=== PATIENT | female | born 1960 | race Caucasian/White ===

== ENCOUNTER 2018-12-01 19:55 | Emergency (ER) | payer OTHER ==
[2018-12-01 20:13] VITALS: BP 135/79
--- NOTE | 2018-12-01 20:20 | UC ---
Complaint Female HPI - HPI Summary HPI Summary: For about the past 2 weeks, has had off and on dysuria and urgency which responded to Azo, cranberry supplement and D-mannos. this afternoon, sudden onset of dysuria, urgency and suprapubic pain, without fever or back pain. No increase in nocturia or gross hematuria. - History Of Current Complaint Chief Complaint: UCGU Stated Complaint: URINARY COMPLAINT Time Seen by Provider: 12/01/18 20:19 Hx Obtained From: Patient Hx Last Menstrual Period: 2 months ago, normally irregular ?: No Onset/Duration: Gradual Onset, Lasting Weeks Timing: Lasting Days Severity Initially: Moderate Severity Currently: Moderate Pain Intensity: 4 Character: Dull, Burning Aggravating Factor(s): Urination Alleviating Factor(s): Meds Associated Signs And Symptoms: Positive: Nausea. Negative: Fever, Back Pain - Allergies/Home Medications Allergies/Adverse Reactions: Allergies Allergy/AdvReac Type Severity Reaction Status Date / Time Sulfa (Sulfonamide Allergy Rash Verified 12/01/18 20:09 Antibiotics) gluten AdvReac Diarrhea Verified 12/01/18 20:09 pollen extracts AdvReac Congestion Verified 12/01/18 20:09 Home Medications: Home Medications Atorvastatin* [Lipitor*] 10 mg PO QAM 12/01/18 [History Confirmed 12/01/18] Cholecalciferol TAB* [Vitamin D TAB*] 8,000 units PO DAILY 12/01/18 [History Confirmed 12/01/18] L.acidoph,Paracasei, B.lactis [Probiotic] 1 each PO DAILY 12/01/18 [History Confirmed 12/01/18] Metoprolol Succinate XL TAB* [Toprol XL TAB*] 100 mg PO QAM 12/01/18 [History Confirmed 12/01/18] Spironolactone 100 mg PO QAM 12/01/18 [History Confirmed 12/01/18] Thyroid,Pork [[place] Thyroid] 120 mg PO QAM 12/01/18 [History Confirmed 12/01/18 ] PMH/Surg Hx/FS Hx/Imm Hx - Additional Past Medical History Additional PMH: past B12 and vitamin D deficiencies. Cardiovascular History: Hypertension GI/ History: Other - celiac disease - Surgical History Surgical History: Yes Surgery Procedure, Year, and Place: appy 1979. tonsils 1975 - Family History Known Family History: Positive: Cardiac Disease, Other - mother with celiac disease - Social History Lives: With Family Alcohol Use: None Substance Use Type: None Smoking Status (MU): Never Smoked Tobacco Review of Systems All Other Systems Reviewed And Are Negative: Yes Constitutional: Positive: Fatigue Gastrointestinal: Positive: Nausea Genitourinary: Positive: Dysuria, Frequency, Urgency. Negative: Vaginal/Penile Discharge Is Patient Immunocompromised?: No Physical Exam Triage Information Reviewed: Yes Appearance: Well-Appearing, No Pain Distress Vital Signs: Initial Vital Signs Temp 98.3 F 12/01/18 20:06 Pulse 78 12/01/18 20:06 Resp 16 12/01/18 20:06 BP 135/79 12/01/18 20:06 Pulse Ox 98 12/01/18 20:06 ENT Exam: Normal ENT: Positive: Normal ENT inspection Neck: Positive: Supple, Nontender, No Lymphadenopathy Respiratory: Positive: Lungs clear, Normal breath sounds Cardiovascular: Positive: RRR, No Murmur Abdomen Description: Positive: No Organomegaly, Soft, Other: - + suprapubic tenderness.. Negative: CVA Tenderness (R), CVA Tenderness (L) Musculoskeletal Exam: Normal Psychological Exam: Normal Skin Exam: Normal Diagnostics - Laboratory Lab Results: UA with leukocyte esterase Complaint Female Dx - Course Course Of Treatment: macrodantin for UTI, culture sent. - Differential Dx/Diagnosis Differential Diagnosis/HQI/PQRI: Urinary Tract Infection Provider Diagnosis: UTI (urinary tract infection) Discharge - Sign-Out/Discharge Documenting (check all that apply): Patient Departure All imaging exams completed and their final reports reviewed: No Studies - Discharge Plan Condition: Stable Disposition: HOME Prescriptions: Nitrofurantoin Macrocrystals* [Macrodantin 100 mg*] 100 mg PO BID #14 cap Patient Education Materials: Urinary Tract Infection in Women (ED) Referrals: Nabli Page MD [Primary Care Provider] - Additional Instructions: Begin macrodantin, and continue high intake of water. Continued use of cranberry supplement is okay. Urine culture has been sent and you will be notified if there is a need for change of antibiotics. - Billing Disposition and Condition Condition: STABLE Disposition: Home
== END 2018-12-01 20:45 | disposition home or self-care (01) ==
LOC: UCCORT 19:55
DX: N39.0 Urinary tract infection, site not specified (principal); Z88.2 Allergy status to sulfonamides; I10 Essential (primary) hypertension; K90.0 Celiac disease
CPT/HCPCS: 81003; 87086; 99212; G0463